=== PATIENT | female | born 1980 | race African-American/Black ===

== ENCOUNTER 2024-01-22 07:57 | Inpatient (IN) | payer MEDICAID, OTHER ==
[~2024-01-22] VITALS: Ht 157.5 cm; Wt 68.0 kg
[2024-01-22 09:53] LABS: CARBON DIOXIDE 27 mEq/L (21-32); CHLORIDE 104 mEq/L (98-107); HEMATOCRIT 34.8 % (36.0-48.0); HEMOGLOBIN 11.6 g/dL (12.0-16.0); MEAN CORPUSCULAR HEMOGLOBIN 31.9 pg (28.0-32.0); MEAN CORPUSCULAR HGB CONC 33.4 g/dL (31.0-37.0); MEAN CORPUSCULAR VOLUME 95.6 fL (81.0-99.0); PLATELET 273 x1000/uL (130-400); POTASSIUM 3.8 mEq/L (3.5-5.1); RED BLOOD CELL COUNT 3.64 mill/uL (4.2-5.4); SODIUM 135 mEq/L (136-145); WHITE BLOOD COUNT 3.4 x1000/uL (4.5-11.0)
[2024-01-22 09:54] LABS: CALCIUM 9.3 mg/dL (8.7-10.4)
[2024-01-22 09:58] LABS: CREATININE 0.8 mg/dL (0.6-1.0); TROPONIN I HIGH SENSITIVITY 8 ng/L (3.0-34)
[2024-01-22 09:59] LABS: GLUCOSE 311 mg/dL (70-105); UREA NITROGEN BLOOD 13 mg/dL (9-23)
[2024-01-22 10:02] LABS: HCG SCREEN NEGATIVE
[2024-01-22] MEDS: ASPIRIN 325MG EC TABLET PO ONE (10:20)
[2024-01-22] MEDS: CEFTRIAXONE 1GM/50ML 50 ML IV ONE (10:30)
[2024-01-22] MEDS: AZITHROMYCIN 500MG/250ML 250 ML IV ONE (10:30)
[2024-01-22] MEDS: SODIUM CHLORIDE 0.9% 1000ML BAG (SEPSIS BOLUS) IV ONE (10:30)
[2024-01-22] MEDS ORDERED: GUAIFENESIN 200MG/10ML SUGAR FREE UDC PO PRN (13:30)
[2024-01-22] MEDS ORDERED: NITROGLYCERIN 0.4MG TABLET SL SL PRN (13:30)
[2024-01-22] MEDS ORDERED: DOCUSATE SODIUM 100MG CAPSULE PO PRN (13:30)
[2024-01-22] MEDS ORDERED: CLONIDINE 0.1MG TABLET PO PRN (13:30)
[2024-01-22] MEDS ORDERED: MAGNESIUM/ALUMINUM HYDROXIDE/SIMETHICONE 30ML UDC PO PRN (13:30)
[2024-01-22] MEDS ORDERED: ZOLPIDEM TARTRATE 5MG TABLET PO PRN (13:30)
[2024-01-22] MEDS ORDERED: ACETAMINOPHEN 325MG TABLET PO PRN (13:30)
[2024-01-22] MEDS: AMLODIPINE 5MG TABLET PO SCH (13:50)
[2024-01-22] MEDS: ONDANSETRON HCL 4MG/2ML INJ IV PRN (13:51)
[2024-01-22] MEDS: KETOROLAC 15MG/ML VIAL IV PRN (13:52)
[2024-01-22 14:25] VITALS: BP 131/80; PULSE 81; RESP 18; TEMP 36.5848
[2024-01-22] MEDS ORDERED: SITA100T11 PO (15:08)
[2024-01-22 15:22] VITALS: BP 131/80; PULSE 81; RESP 18; TEMP 36.55848; O2SAT 100
[2024-01-22] MEDS: ACETAMINOPHEN 325MG TABLET PO PRN (15:36)
[2024-01-22] MEDS: ENOXAPARIN 40MG/0.4ML SYR SUBCUT SCH (15:37)
[2024-01-22] MEDS ORDERED: DEXTROSE 50% WATER 50ML SYRINGE IV PRN (16:00)
[2024-01-22] MEDS: BLOOD SUGAR DIAGNOSTIC STRIP TEST SCH (17:10)
[2024-01-22] MEDS: INSULIN LISPRO 100 UNITS/ML SUBCUT SCH (18:08)
[2024-01-22 20:00] VITALS: BP 126/80; PULSE 93; RESP 20; TEMP 36.55848; O2SAT 100
[2024-01-22] MEDS: FAMOTIDINE 20MG TABLET PO SCH (20:29)
[2024-01-22 22:19] LABS: IRON 70 ug/dL (50-170)
[2024-01-22 22:20] LABS: CREATINE KINASE MB FRACTION < 0.5 ng/mL (0.5-3.6); TRIGLYCERIDE 382 mg/dL (0-150); TROPONIN I HIGH SENSITIVITY 8 ng/L (3.0-34)
[2024-01-22 22:21] LABS: CREATINE KINASE 61 IU/L (34-145); LDL CHOLESTEROL 108 mg/dL (5-100)
[2024-01-22 22:22] LABS: CHOLESTEROL 164 mg/dL (<200); ETHANOL BLOOD < 10 mg/dL (<10); HDL CHOLESTEROL 28 mg/dL (>65); TOTAL IRON BINDING CAPACITY 312 ug/dl (250-425)
[2024-01-22 22:26] LABS: THYROID STIMULATING HORMONE 1.02 uIU/mL (0.55-4.78)
[2024-01-22 22:27] LABS: FOLIC ACID (FOLATE) SERUM 11.72 ng/mL (>5.38); VITAMIN B12 SERUM 558 pg/mL (211-911)
[2024-01-22 22:39] LABS: HEPATITIS B SURFACE ANTIGEN NEGATIVE (Negative)
[2024-01-22] MEDS: INSULIN GLARGINE 100 UNITS/ML SUBCUT SCH (22:48)
[2024-01-22 23:00] LABS: HEPATITIS C AB NON REACTIVE (Neg) (Negative)
[2024-01-23] VITALS (7 sets, daily range): BP systolic 95–136; BP diastolic 55–80; PULSE 76–90; RESP 18–20; TEMP 36.44736–36.61404; O2SAT 96–100
[2024-01-23] MEDS: ASPIRIN 81MG EC TABLET PO SCH (08:56)
[2024-01-23] MEDS: BACLOFEN 10MG TABLET PO PRN (09:00)
[2024-01-23] MEDS: IPRATROPIUM/ALBUTEROL 0.5-3(2.5)MG/3ML NEB NEB PRN (10:36)
== END 2024-01-23 15:23 | disposition left against medical advice (07) | DRG 241 ==
LOC: ER 07:57 → EDBEDREQTM 11:25 → EDBEDREQ 11:25 → ER 14:14 → 8WST 15:24
PROVIDERS: ADMIT Internal Medicine; ATTEND Internal Medicine
DX: K29.70 Gastritis, unspecified, without bleeding (principal); E87.1 Hypo-osmolality and hyponatremia; R07.89 Other chest pain; E11.65 Type 2 diabetes mellitus with hyperglycemia; D64.9 Anemia, unspecified; Z20.822 Contact with and (suspected) exposure to COVID-19; Z53.29 Procedure and treatment not carried out because of patient's decision for other reasons; Z98.891 History of uterine scar from previous surgery; Z79.899 Other long term (current) drug therapy
CPT/HCPCS: 36415; 71045; 80048; 80061; 80320; 82550; 82553; 82607; 82746; 82962; 83036; 83540; 83550; 83605; 84145; 84443; 84484; 84703; 85027; 85379; 86705; 87340; 87426; 93005; 93970; 94640; 99291; J0456; J0696; J1650; J1815; J1885; J2405; J7030; G0480